=== PATIENT | male | born 1940 | race Caucasian/White ===

== ENCOUNTER 2018-12-05 09:17 | Outpatient (CLI) | payer BC, MEDICARE ==
--- NOTE | 2018-12-05 17:36 | NM ---
NUCLEAR MEDICINE BRAIN IMAGING: HISTORY: Parkinson disease. Memory and gait problems. Tremor in the left hand. TECHNIQUE: A DaTscan with axial tomographic images of the brain was obtained three hours following the intraveno us administration of 4.5 millicuries of I-123 Ioflupane. The patient was pretreated with 130 mg of p otassium iodide orally one hour prior to the injection. FINDINGS: There is loss of normal symmetric uptake in the striata bilaterally with the normal comma-shaped upta ke pattern replaced by a period shaped appearance on either side. IMPRESSION: Parkinsonian syndrome. POS: OFF
== END 2018-12-05 09:18 | disposition home or self-care (01) ==
LOC: NM 09:17
PROVIDERS: ATTEND Psychiatry & Neurology Neurology
DX: G20 Parkinson's disease (principal)
CPT/HCPCS: 78607; A9584